=== PATIENT | male | born 1950 | race Caucasian/White ===

== ENCOUNTER → 2018-05-11 | Outpatient (CLI) | payer MEDICARE ==
[~2018-05-11] MED LIST: ACET-1757 PO; LISI-170 PO; NAPR-685 PO
[2018-05-11 11:15] LABS: MICROSCOPIC AUTO
[2018-05-11 11:16] LABS: BASOPHILS # (AUTO) 0.05 x10^3/uL (0-0.1); BASOPHILS % (AUTO) 1 % (0-1); EOSINOPHILS # (AUTO) 0.04 x10^3/uL (0-0.4); EOSINOPHILS % (AUTO) 1 % (1-7); LYMPHOCYTES # (AUTO) 1.23 x10^3/uL (1-3.4); LYMPHOCYTES % (AUTO) 24 % (22-44); MD NO; MEAN CORPUSCULAR HEMOGLOBIN 32.8 pg (27.5-34.5); MEAN CORPUSCULAR HGB CONC 34.8 g/dL (33.2-36.2); MEAN CORPUSCULAR VOLUME 94.2 fL (81-97); MEAN PLATELET VOLUME 7.6 fL (7.4-10.4); MONOCYTES # (AUTO) 0.23 x10^3/uL (0.2-0.8); MONOCYTES % (AUTO) 5 % (2-9); NEUTROPHILS % (AUTO) 70 % (42-75); PLATELET COUNT 206 x10^3/uL (130-400); RED BLOOD COUNT 4.95 x10^6/uL (4.38-5.82); RED CELL DISTRIBUTION WIDTH 13.4 % (9.4-14.8)
[2018-05-11 11:26] LABS: ALBUMIN 4.3 g/dL (3.4-5.0); ANION GAP 5 mmol/L (5-15); CALCIUM 9.1 mg/dL (8.5-10.1); CHLORIDE 102 mmol/L (98-107)
[2018-05-11 11:31] LABS: ALANINE AMINOTRANSFERASE 17 U/L (12-78); ALKALINE PHOSPHATASE 97 U/L (45-117); BILIRUBIN,TOTAL 1.4 mg/dL (0.2-1.0); CREATININE 1.02 mg/dL (0.7-1.3); TOTAL PROTEIN 7.6 g/dL (6.4-8.2)
== END | disposition home or self-care (01) ==
LOC: STAR 09:57
PROVIDERS: ATTEND Family Medicine
DX: Z01.818 Encounter for other preprocedural examination (principal); B07.9 Viral wart, unspecified; I10 Essential (primary) hypertension; M41.84 Other forms of scoliosis, thoracic region; Z79.899 Other long term (current) drug therapy
CPT/HCPCS: 36415; 71046; 80053; 81001; 85025; 87086; 93005

== ENCOUNTER 2018-05-21 14:27 | Day surgery (SDC) | payer MEDICARE, OTHER ==
[~2018-05-21] VITALS: Ht 177.8 cm; Wt 67.9 kg
[2018-05-21] MEDS ORDERED: LACTATED RINGERS 1,000 ML IV SCH (14:44)
[2018-05-21] MEDS ORDERED: CEFAZOLIN 1,000 MG ONE (17:20)
[2018-05-21] MEDS ORDERED: SUCCINYLCHOLINE 20 MG/ML, 10ML ONE (17:20)
[2018-05-21] MEDS ORDERED: PROPOFOL 10 MG/ML, 20ML ONE (17:20)
[2018-05-21] MEDS ORDERED: NEOSPORIN OINT, 15GM ONE (17:47)
[2018-05-21] MEDS ORDERED: ALBUTEROL/IPRATROPIUM 2.5MG/0.5MG, 3 ML NPPB PRN (18:00)
[2018-05-21] MEDS ORDERED: MORPHINE SULFATE 4 MG/ML, 1ML IVPush PRN (18:00)
[2018-05-21] MEDS ORDERED: MEPERIDINE/PF 25MG/0.5ML IVPush PRN (18:00)
[2018-05-21] MEDS ORDERED: OXYcodone 5 MG/5 ML ORAL.SOL UDC PO PRN (18:00)
[2018-05-21] MEDS ORDERED: KETOROLAC 30 MG/1 ML IV ONE (18:00)
[2018-05-21] MEDS ORDERED: HYDROmorphone 2 MG/ML, 1ML IVPush PRN (18:00)
[2018-05-21] MEDS ORDERED: OXYcodone 5 MG/5 ML ORAL.SOL UDC ONE (18:14)
[2018-05-21] MEDS ORDERED: hydrALAzine 20 MG/ML, 1ML ONE (18:39)
[2018-05-21] MEDS ORDERED: hydrALAzine 20 MG/ML, 1ML IV ONE (19:00)
[2018-05-21] MEDS ORDERED: LABETALOL 5MG/ML, 20ML IVPush PRN (19:30)
== END 2018-05-21 20:50 | disposition home or self-care (01) ==
LOC: OR 14:27 → 4NOR 19:48 → OR 20:50
PROVIDERS: ATTEND Urology
DX: A63.0 Anogenital (venereal) warts (principal); L98.8 Other specified disorders of the skin and subcutaneous tissue
CPT/HCPCS: 11106; 17110; 88305; J0330; J0360; J0690; J2704; G0378